=== PATIENT | male | born 1950 | race Caucasian/White ===

== ENCOUNTER → 2024-09-14 | Day surgery (SDC) | payer MEDICARE ==
[2024-09-10 10:57] LABS: BASOPHILS % 0.4 % (0.0-1.0); EOSINOPHILS % 0.6 % (0.0-6.0); LYMPHOCYTES % 19.3 % (18.0-39.1); MONOCYTES % 6.6 % (4.4-11.3); NEUTROPHILS % 72.9 % (38.7-80.0); RED CELL DISTRIBUTION WIDTH 13.5 % (11.7-14.4)
[2024-09-10 11:27] LABS: INR 0.89
[2024-09-10 11:33] LABS: EST GLOMERULAR FILTRATION RATE 43.0 ML/MIN (>=60)
[~2024-09-14] MED LIST: ACYCLOVIR800 MG PO; AMLODIPINE BESY10 MG PO; ATIVAN1 MG PO; BACLOFEN10 MG PO; ELIQUIS5 MG PO; FUROSEMIDE40 MG PO; HYTRIN1 M1 PO; LIDOCAINE HCL 2% LOCAL INJ 5 ML SDV VIAL INJ ONE; METOCLOPRAMIDE HCL 10 MG/2ML VIAL ONE; METOPROLOL TAR100 MG PO; OMEPRAZOLE40 MG PO; ONDANSETRON ODT4 MG PO; PROPOFOL IV EMULSION 10 MG/ML 20 ML VIAL ONE; PROPOFOL IV EMULSION 50 ML IV ONE; TERBINAFINE HC250 MG PO; ZETIA10 MG PO
[2024-09-14 17:42] VITALS: TEMP 97.7
[2024-09-14 18:00] VITALS: BP 166/83; PULSE 60; RESP 16; O2SAT 100
== END | disposition home or self-care (01) ==
LOC: OR 17:00
PROVIDERS: ATTEND Internal Medicine Gastroenterology
DX: Z12.11 Encounter for screening for malignant neoplasm of colon (principal); D12.3 Benign neoplasm of transverse colon; K21.00 Gastro-esophageal reflux disease with esophagitis, without bleeding; K29.50 Unspecified chronic gastritis without bleeding; K22.89 Other specified disease of esophagus; K57.30 Diverticulosis of large intestine without perforation or abscess without bleeding; K44.9 Diaphragmatic hernia without obstruction or gangrene; I25.10 Atherosclerotic heart disease of native coronary artery without angina pectoris; K76.0 Fatty (change of) liver, not elsewhere classified; C61 Malignant neoplasm of prostate; I11.0 Hypertensive heart disease with heart failure; I50.9 Heart failure, unspecified; F31.9 Bipolar disorder, unspecified; F03.94 Unspecified dementia, unspecified severity, with anxiety; F17.210 Nicotine dependence, cigarettes, uncomplicated; Z95.0 Presence of cardiac pacemaker; Z79.899 Other long term (current) drug therapy; Z79.01 Long term (current) use of anticoagulants; Z01.810 Encounter for preprocedural cardiovascular examination; Z01.812 Encounter for preprocedural laboratory examination
CPT/HCPCS: 36415; 43239; 45381; 45384; 45385; 80053; 85025; 85610; 85730; 88305; 93005; J2003; J2704 ×2; J2765; 45380